=== PATIENT | female | born 1990 | race Two or more races ===

== ENCOUNTER 2022-09-15 18:39 | Emergency (ER) | payer BC ==
[~2022-09-15] VITALS: Ht 172.7 cm; Wt 67.1 kg
[2022-09-15 19:35] VITALS: BP 116/70
--- NOTE | 2022-09-15 19:35 | NUR ---
BIBS THIS 32/F CAME WITH CC OF PAIN ON THE RIGHT WRIST. PER PATIENT, SHE CAME FROM ANOTHER HOSPITAL EARLIER AND WAS SEEN BY MD. SHE CAME BECAUSE THE PAIN INTENSIFIES. PLACED IN CHAIR. VITALS CHECKED.
--- NOTE | 2022-09-15 19:40 | NUR ---
SEEN BY DR ANDRADE AT [facility] Addendum: 09/15/22 at 1948 by LAXMI SEEN BY DR ANDRADE AT [facility]
--- NOTE | 2022-09-15 20:40 | NUR ---
Patient discharged to home in stable condition. Written and verbal after care instructions given. Patient verbalizes understanding of instruction.
== END 2022-09-15 20:40 | disposition home or self-care (01) ==
LOC: EDSEX 18:42 → ER 18:42
DX: S63.501A Unspecified sprain of right wrist, initial encounter (principal); Z91.013 Allergy to seafood; V09.9XXA Pedestrian injured in unspecified transport accident, initial encounter; Y93.89 Activity, other specified; Y92.89 Other specified places as the place of occurrence of the external cause; Y99.8 Other external cause status
CPT/HCPCS: 73090-TC